=== PATIENT | female | born 1970 | race Caucasian/White ===

== ENCOUNTER 2020-05-24 07:14 | Outpatient (REF) | payer OTHER, SELFPAY ==
--- NOTE | ~2020-05-24 | MM_ITS ---
EXAMINATION: MM SCREENING DIGITAL BREAST TOMOSYNTHESIS, BILATERAL CLINICAL INFORMATION: Screening. Asymptomatic. The lifetime risk of breast cancer based on the Tyrer-Cuzick Model is 8.0%. COMPARISON: Mammography: April 21, 2019 and studies dating back to March 04, 2013 TECHNIQUE: Digital breast tomosynthesis is performed in both the craniocaudal and mediolateral oblique views along with computer-aided detection (CAD). Synthesized 2D images are generated from the tomosynthesis. FINDINGS: The breasts are extremely dense, which lowers the sensitivity of mammography (ACR BI-RADS breast composition Category d). There are no significant masses, abnormal calcifications, or other abnormalities. MM/MM tomosynthesis screening BI IMPRESSION: There are no significant changes from prior study. ASSESSMENT: BI-RADS 1: Negative RECOMMENDATION: Routine annual mammography screening. This patient's information was entered into a reminder system with a target due date for their next mammogram.
== END 2020-05-24 07:15 | disposition home or self-care (01) ==
LOC: HO.MAMMO 07:14
PROVIDERS: Absent Provider Obstetrics & Gynecology Gynecology; PCP Hospitalist; Visit Provider Hospitalist
DX: Z12.31 Encounter for screening mammogram for malignant neoplasm of breast (principal)
CPT/HCPCS: 77063; 77067

== ENCOUNTER 2021-05-27 09:00 | Outpatient (REF) | payer OTHER, SELFPAY ==
--- NOTE | ~2021-05-27 | MM_ITS ---
EXAMINATION: MM SCREENING DIGITAL BREAST TOMOSYNTHESIS, BILATERAL CLINICAL INFORMATION: Screening. Asymptomatic. The lifetime risk of breast cancer based on the Tyrer-Cuzick Model is 8%. COMPARISON: Mammography: 05/24/2020, 04/21/2019, 04/11/2018 TECHNIQUE: Digital breast tomosynthesis is performed in both the craniocaudal and mediolateral oblique views along with computer-aided detection (CAD). Synthesized 2D images are generated from the tomosynthesis. Additional bilateral exaggerated CC views are provided. FINDINGS: The breasts are heterogeneously dense, which may obscure small masses (ACR BI-RADS breast composition Category c). There are no significant masses, abnormal calcifications, or other abnormalities. Parenchymal pattern is similar to prior studies. There is no developing density or architectural abnormality. The axilla and skin contours are unremarkable. No significant changes. MM/MM tomosynthesis screening BI IMPRESSION: No mammographic evidence of malignancy. ASSESSMENT: BI-RADS 1: Negative RECOMMENDATION: Routine annual mammography screening. This patient's information was entered into a reminder system with a target due date for their next mammogram.
== END 2021-05-27 09:01 | disposition home or self-care (01) ==
LOC: HO.MAMMO 09:00
PROVIDERS: Visit Provider Hospitalist
DX: Z12.31 Encounter for screening mammogram for malignant neoplasm of breast (principal)
CPT/HCPCS: 77063; 77067

== ENCOUNTER 2022-06-02 07:34 | Outpatient (REF) | payer OTHER, SELFPAY ==
--- NOTE | ~2022-06-02 | MM_ITS ---
EXAMINATION: MM SCREENING DIGITAL BREAST TOMOSYNTHESIS, BILATERAL CLINICAL INFORMATION: Screening. Asymptomatic. The lifetime risk of breast cancer based on the Tyrer-Cuzick Model is 7%. COMPARISON: Mammography: 05/27/2021, 05/24/2020, 04/21/2019, TECHNIQUE: Digital breast tomosynthesis is performed in both the craniocaudal and mediolateral oblique views along with computer-aided detection (CAD). Synthesized 2D images are generated from the tomosynthesis. FINDINGS: The breasts are heterogeneously dense, which may obscure small masses (ACR BI-RADS breast composition Category c). There are no significant masses, abnormal calcifications, or other abnormalities. No architectural abnormality or developing density or significant change from prior studies. The axilla are unremarkable. MM/MM tomosynthesis screening BI IMPRESSION: No mammographic evidence of malignancy. ASSESSMENT: BI-RADS 1: Negative RECOMMENDATION: Routine annual mammography screening. This patient's information was entered into a reminder system with a target due date for their next mammogram.
== END 2022-06-02 07:35 | disposition home or self-care (01) ==
LOC: HO.MAMMO 07:34
PROVIDERS: PCP Hospitalist; Visit Provider Hospitalist
DX: Z12.31 Encounter for screening mammogram for malignant neoplasm of breast (principal)
CPT/HCPCS: 77063; 77067

== ENCOUNTER 2023-06-06 14:19 | Outpatient (REF) | payer OTHER, SELFPAY ==
--- NOTE | ~2023-06-06 | US_ITS ---
EXAMINATION: MM DIAGNOSTIC DIGITAL BREAST TOMOSYNTHESIS, BILATERAL US BREAST LIMITED, LEFT MAMMOGRAPHY: CLINICAL INFORMATION: Patient's clinician felt palpable ridge left breast 11:00 to 2:00 axis. Patient herself cannot feel this. Patient also due for routine screening. Patient has history of right cyst aspirations in 2013. COMPARISON: Mammography: 06/02/2022, 05/27/2021, 05/24/2020, 04/21/2019, dating back to 2013. TECHNIQUE: Digital breast tomosynthesis is performed in both the craniocaudal and mediolateral oblique views along with computer-aided detection (CAD). Synthesized 2D images are generated from the tomosynthesis. In addition to standard views, a full-field 3-D left ML view was also included. FINDINGS: The breasts are extremely dense, which lowers the sensitivity of mammography (ACR BI-RADS breast composition Category d). There are a few scattered foci of milk of calcium in the left greater than right breast. No suspicious grouped calcifications. No mass, or developing architectural distortion which can be distinguished from the extremely dense breast parenchyma. Probable underlying fibrocystic changes. No mammographic correlate to the palpable ridge left breast 11-2 o'clock axis. The overall parenchymal pattern is unchanged from prior exams. Left breast will be interrogated by ultrasound. ULTRASOUND: CLINICAL INFORMATION: Patient's clinician felt palpable ridge left breast 11:00 to 2:00 axis. Patient herself cannot feel this. Patient also due for routine screening. Patient has history of right cyst aspirations in 2013. COMPARISON: 06/12/2013. TECHNIQUE: Targeted sonographic evaluation was performed using a high frequency linear transducer. Attention was given to the region of purported palpable concern left breast, 11-2 o'clock axis. Selected archived documentation. FINDINGS: LEFT BREAST: There is extremely dense fibrocystic tissue. Numerous small subcentimeter cysts are present consistent with known fibrocystic changes. No suspicious mass is seen. There is no pathologic acoustic shadowing. No large cystic abnormality. No definite ultrasonographic correlate to the palpable focus left breast 11:00 to 2:00 axis. US/US breast LT limited mamm only IMPRESSION: -There are no findings suspicious for malignancy in either breast. Both breasts have extremely dense fibrocystic tissue. -No definite mammographic or sonographic correlate to the palpable focus of concern left breast 11:00 to 2:00. Only extremely dense fibrocystic breast tissue is seen in this region. Recommend clinical management. -Otherwise, recommend resuming routine mammographic screening on an annual basis. -Given the breast tissue density, consideration should be made for a screening adjunct such as screening bilateral breast ultrasound usually conducted 6 months after screening mammography. OVERALL ASSESSMENT: Mammography: BI-RADS 2 - Benign Findings Ultrasound: BI-RADS 2 - Benign Findings RECOMMENDATION: 1. Patient should be managed based on the clinical impression. Decision to proceed with biopsy should be based on clinical grounds and degree of clinical concern. 2. Otherwise, routine annual screening mammography. This patient's information was entered into a reminder system with a target due date for their next mammogram.
== END 2023-06-06 14:20 | disposition home or self-care (01) ==
LOC: HO.MAMMO 14:19
PROVIDERS: PCP Hospitalist; Visit Provider Obstetrics & Gynecology Gynecology
DX: N64.59 Other signs and symptoms in breast (principal)
CPT/HCPCS: 76642; 77062; 77066

== ENCOUNTER → 2023-06-06 15:00 | Outpatient (BNV) | payer OTHER, SELFPAY | PROVIDERS: PCP Hospitalist; Visit Provider Radiology Diagnostic Radiology | DX: N63.25 Unspecified lump in the left breast, overlapping quadrants (principal) | CPT/HCPCS: 76642; 77062; 77066 ==

== ENCOUNTER 2024-09-03 07:36 | Outpatient (REF) | payer OTHER, SELFPAY ==
--- OUTSIDE RECORDS SUMMARY | 2024-05-16 04:50 | XMS_ITS ---
Author Organization [facility] Address [address] [facility] [address] [place] [address] Care Team Providers Care Can Intake Worker Name Role Phone MICHAEL PATEL PA-C Primary Care Provider Unavail Goldie Ansari Unavailable [phone] REASON FOR VISIT Annual (YELLOW FORM DONE) Social History Tobacco Use: Social History Observation Description Date Details (start date - stop date) Never Smoker NA - NA Sexual History Question Answer Notes Had sex in the past 12 months (vaginal, oral, or anal)? Yes with Men only Prevention strategies discussed: Other AUDIT-C (Standard) Question Answer Notes Did you have a drink contain ing alcohol in the past year? Yes How often did you have a dri nk containing alcohol in the past year? Monthly or less (1 point) How many drinks did you have on a typical day when you were drinking in the past year? 1 or 2 drinks (0 point) How often did you have six o r more drinks on one occasion in the past year? Never (0 point) Points 1 Interpretation Negative Tobacco Control (Standard) Question Answer Notes Tobacco use: Nonsmoker Encounters Encounter Location Date Provider Diagnosis [facility] [address] [facility] [address] [place] [address] 05/16/2024 Goldie Staley Plan Of Treatment Next Appt Details Provider Name:Goldie pickard, 10/17/2024 09:30:00 AM, [address] [facility], [address], [place], [address], Provider Name:Goldie pickard, 10/17/2024 09:30:00 AM, [address] [address], [place], [address], Provider Name:Goldie pickard, 08/27/2025 08:20:00 AM, [address] [address], [place], [address], Progress Notes * ANGELIQUE PIKEDOB:1970 (54 yo F)Acc No.[id number]:05/16/2024 PROGRESS NOTES Patient: ANGELIQUE MORRISON Appointment Provider: Yesi Staley M.D. :1970 A ge:54 Y S ex:Female Date:05/16/2024 Address:[address] [place], [place] [id number] Pcp:MICHAEL PATEL PA-C Subjective: * Chief Complaints: * 1 . Annual (YELLOW FORM DONE). * Medical History: U nspecified lump in breast, Dietary counseling and surveillance, Candidiasis of vulva and vagina, Subacute and chronic vaginitis, Hyperlipidemia, unspecified, Other specified nonscarring hair loss, Inconclusive mammogram, Mammographic heterogeneous density, bilateral breasts, Blood Clot Left Leg, Unspecified abnormal cytological findings in specimens from cervix uteri, Dense breasts, unspecified, Mammographic extreme density, bilateral breasts. * Scaffolder History: G ravida/ Para 2 /2. S exual activity c urrently sexually active. L ast Pap Smear: Epithelial Cells, Neg HPV, 10/14/20 NIL, NEG HPV, 05/07/2017, neg, NEG HRHPV. M ammogram: > 75% density, 05/2022 [place], 05/27/21, 04/21/2019 50-75% density, 04/11/2018 normal, 03/2017 normal, 02/2016 Dense Breast Per Patient/Letter, 02/2015, normal per patient report. A bnormal Pap Smear: n o history of abnormal pap smears. L MP and menses . * OB History: T otal pregnancies 2 . T otal living children 2 . P regnancy # 1: n ormal spontaneous vaginal delivery (). P regnancy # 2: n ormal spontaneous vaginal delivery (). * Social History: T obacco Use: T obacco Control (Standard) T obacco use: N onsmoker S exual History: S exual History H ad sex in the past 12 months (vaginal, oral, or anal)? Y es w ith M en only P revention strategies discussed: O ther Details of Sexual History A re you sexually active? Y es D rugs/Alcohol: D rugs H ave you used drugs other than those for medical reasons in the past 12 months? N o M iscellaneous: C hildren: yes, 2. Domestic violence: no. Exercise: yes. Home smoke detector use: yes. Living with: significant other. Marital status: single. Natural support system: yes. 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 Sexual abuse: no. Sexually active: yes, monogamous relationship. Verbal abuse: no. D rug/Alcohol: A MAGALY-C (Standard) D id you have a drink containing alcohol in the past year? Y es H ow often did you have a drink containing alcohol in the past year? M onthly or less (1 point) H ow many drinks did you have on a typical day when you were drinking in the past year? 1 or 2 drinks (0 point) H ow often did you have six or more drinks on one occasion in the past year? N ever (0 point) P oints 1 I nterpretation N egative Objective: * Vitals: Assessment: Plan: * Treatment: * Images: Billing Information: * Visit Code: * Procedure Codes: * Electronic signature of Matthew Staley MD on 09/03/2024 at 07:39 AM EDT Sign off status: Pending * Appointment Provider: Yesi Staley M.D. Date: 0 05/16/2024 Generated for Sonya squires/Mandie/eTransmitting on: 0 09/03/2024 07:39 AM EDT
== END 2024-09-03 07:37 | disposition home or self-care (01) ==
LOC: HO.MAMMO 07:36
PROVIDERS: PCP Physician Assistant; Visit Provider Obstetrics & Gynecology Gynecology
DX: Z12.31 Encounter for screening mammogram for malignant neoplasm of breast (principal)
CPT/HCPCS: 77063; 77067

== ENCOUNTER → 2024-09-03 08:00 | Outpatient (BNV) | payer OTHER, SELFPAY | PROVIDERS: PCP Physician Assistant; Visit Provider Internal Medicine | DX: Z12.31 Encounter for screening mammogram for malignant neoplasm of breast (principal) | CPT/HCPCS: 77063; 77067 ==